=== PATIENT | female | born 1945 | race Caucasian/White ===

== ENCOUNTER 2023-12-25 13:47 | Outpatient (CLI) | payer MEDICARE, BC ==
[~2023-12-25] VITALS: Ht 157.5 cm; Wt 75.7 kg
[2023-12-25 14:22] LABS: TOTAL HEMOGLOBIN 14.3 G/dl (12.0-16.0)
[2023-12-25] MEDS: albuterol 2.5 MG/3 ML nebule NEB ONE (15:00)
[2023-12-25 15:03] VITALS: PULSE 72; RESP 16; O2SAT 97
[2023-12-25 15:18] VITALS: PULSE 68; RESP 18
== END 2023-12-25 23:59 | disposition home or self-care (01) ==
LOC: RT 13:47
PROVIDERS: ATTEND Internal Medicine Pulmonary Disease
DX: J84.112 Idiopathic pulmonary fibrosis (principal)
CPT/HCPCS: 85018; 94060; 94727; 94729; 94760; Z7610